=== PATIENT | male | born 1945 | race Caucasian/White ===

== ENCOUNTER → 2017-04-21 | Outpatient (CLI) | payer MEDICARE ==
[~2017-04-21] MED LIST: ASPI81TA50 PO; INSU100V8 SQ; METF10002 PO; METO5TAB5 PO; PIOG30TA3 PO; QUIN20TA17 PO; SIMV40TA3 PO; SODI650T PO; VITAMIN D2 PO
== END | disposition home or self-care (01) ==
LOC: CVU 07:40
PROVIDERS: ATTEND Family Medicine
DX: M79.604 Pain in right leg (principal); M79.605 Pain in left leg; E11.9 Type 2 diabetes mellitus without complications; Z87.891 Personal history of nicotine dependence
CPT/HCPCS: 93922; 93925

== ENCOUNTER → 2017-07-22 | Outpatient (CLI) | payer MEDICARE ==
[~2017-07-22] MED LIST changes: +REGADENOSON 0.4 MG/5 ML SYRINGE ONE
== END ==
LOC: RAD 10:42
PROVIDERS: ATTEND Internal Medicine Cardiovascular Disease
DX: I25.89 Other forms of chronic ischemic heart disease (principal); I21.9 Acute myocardial infarction, unspecified; I08.0 Rheumatic disorders of both mitral and aortic valves; I10 Essential (primary) hypertension; E11.9 Type 2 diabetes mellitus without complications; E78.5 Hyperlipidemia, unspecified
CPT/HCPCS: 78452; 93017; 93306; A9502; J2785

== ENCOUNTER 2017-08-04 11:07 | Day surgery (SDC) | payer MEDICARE ==
[2017-08-03 11:38] VITALS: BP 119/72
[2017-08-03 12:04] LABS: BASOPHILS # (AUTO) 0.02 x10^3/uL (0-0.1); BASOPHILS % (AUTO) 0 % (0-1); EOSINOPHILS % (AUTO) 0 % (1-7); LYMPHOCYTES % (AUTO) 21 % (22-44); MD NO; MEAN CORPUSCULAR HEMOGLOBIN 28.9 pg (27.5-34.5); MEAN CORPUSCULAR HGB CONC 33.2 g/dL (33.2-36.2); MEAN CORPUSCULAR VOLUME 87.2 fL (81-97); MEAN PLATELET VOLUME 8.4 fL (7.4-10.4); MONOCYTES # (AUTO) 0.51 x10^3/uL (0.2-0.8); MONOCYTES % (AUTO) 8 % (2-9); NEUTROPHILS # (AUTO) 4.39 x10^3/uL (1.8-6.8); NEUTROPHILS % (AUTO) 71 % (42-75); PLATELET COUNT 346 x10^3/uL (130-400); RED BLOOD COUNT 5.19 x10^6/uL (4.38-5.82); RED CELL DISTRIBUTION WIDTH 16.8 % (9.4-14.8)
[2017-08-03 12:22] LABS: ANION GAP 7 mmol/L (5-15); CALCIUM 8.8 mg/dL (8.5-10.1); CHLORIDE 112 mmol/L (98-107); CREATININE 2.28 mg/dL (0.7-1.3)
[~2017-08-04] VITALS: Ht 182.9 cm; Wt 104.5 kg
[~2017-08-04 11:07] MED LIST changes: +ALPH200C PO; +BENA5TAB2 PO; +ERGO500017 PO; +FENO160T PO; +INSU100V5 SQ-INSULIN; +METF750T2 PO; +NPH,100V5 SC; -REGADENOSON 0.4 MG/5 ML SYRINGE ONE; +TAMS-11 PO
[2017-08-04] MEDS ORDERED: ASPIRIN 325 MG TABLET EC PO ONE (12:00)
[2017-08-04] MEDS ORDERED: VERAPAMIL 2.5 MG/ML, 2ML ONE (12:18)
[2017-08-04] MEDS ORDERED: HEPARIN 1,000 UNITS/ML, 10ML ONE (12:18)
[2017-08-04] MEDS ORDERED: LIDOCAINE 2%, 20ML ONE (12:18)
[2017-08-04] MEDS ORDERED: TICAGRELOR 90 MG TABLET ONE (12:18)
[2017-08-04] MEDS ORDERED: FENTANYL PF 100 MCG/2ML ONE (12:18)
[2017-08-04] MEDS ORDERED: MIDAZOLAM 1 MG/ML, 5ML ONE (12:18)
[2017-08-04] MEDS ORDERED: ASPIRIN 325 MG TABLET EC ONE (12:26)
[2017-08-04] MEDS ORDERED: SODIUM CHLORIDE 0.9% 1,000 ML IV SCH (13:18)
== END 2017-08-04 15:36 | disposition home or self-care (01) ==
LOC: CACL 11:07
PROVIDERS: ATTEND Internal Medicine Cardiovascular Disease
DX: I25.10 Atherosclerotic heart disease of native coronary artery without angina pectoris (principal); I10 Essential (primary) hypertension; E11.9 Type 2 diabetes mellitus without complications; E78.2 Mixed hyperlipidemia; F17.210 Nicotine dependence, cigarettes, uncomplicated; Z79.82 Long term (current) use of aspirin; Z01.810 Encounter for preprocedural cardiovascular examination
CPT/HCPCS: 36415; 80048; 85025; 93458; 99156; C1769; C1894; J1644; J2250; J3010; J3490; Q9967

== ENCOUNTER 2018-02-15 22:29 | Emergency (ER) | payer MEDICARE ==
[~2018-02-15] VITALS: Ht 182.9 cm; Wt 102.6 kg
[~2018-02-15 22:29] MED LIST changes: -BENA5TAB2 PO; +BENA5TAB3 PO; -PIOG30TA3 PO; +PIOG30TA67 PO
[2018-02-15 22:42] VITALS: BP 122/61
[2018-02-15] MEDS ORDERED: LIDOCAINE-MPF 2%, 2ML ONE (23:14)
[2018-02-15] MEDS ORDERED: LIDOCAINE 1%, 10ML INFIL ONE (23:30)
== END 2018-02-16 00:54 | disposition home or self-care (01) ==
LOC: ED 23:59
DX: S01.81XA Laceration without foreign body of other part of head, initial encounter (principal); S70.01XA Contusion of right hip, initial encounter; M54.2 Cervicalgia; E11.9 Type 2 diabetes mellitus without complications; I10 Essential (primary) hypertension; W01.0XXA Fall on same level from slipping, tripping and stumbling without subsequent striking against object, initial encounter; Y93.89 Activity, other specified; Y92.009 Unspecified place in unspecified non-institutional (private) residence as the place of occurrence of the external cause; Y99.8 Other external cause status
CPT/HCPCS: 12051; 70450; 72125; 73502; 99284; J3490

== ENCOUNTER 2018-06-18 11:30 | Inpatient (IN) | payer MEDICARE ==
[~2018-06-18] VITALS: Ht 182.9 cm; Wt 96.3 kg
--- NOTE | 2018-06-18 11:59 | NUR ---
HAROLDOAR RPT TO CH[facility] CARRERA
[2018-06-18] MEDS ORDERED: SODIUM CHLORIDE FLUSH 10ML SYR IVF ONE (12:00)
[2018-06-18] MEDS ORDERED: SODIUM CHLORIDE 0.9% 1,000ML IVBOLUS ONE ×2 (12:00→12:30)
--- NOTE | 2018-06-18 12:00 | NUR ---
LATE ENTRY FOR 1135. BIB EMS FROM [facility] IN [facility]. +SYNCOPAL EPISODE WHILE LYING ON EXAM TABLE. LASTING APPROX 1MIN PER CLINIC MD. PT PRESENTS NOW VSS, AND NO COMPLAINTS OF CP, SOB, OR BLAKELY. PT FSBS AT CLINIC = 245. DR. COHEN AT BEDSIDE. ASSESSMENT REV AND ORDERS REC'D.
[2018-06-18 12:06] LABS: BASOPHILS # (AUTO) 0.03 x10^3/uL (0-0.1); BASOPHILS % (AUTO) 0 % (0-1); EOSINOPHILS # (AUTO) 0.02 x10^3/uL (0-0.4); EOSINOPHILS % (AUTO) 0 % (1-7); LYMPHOCYTES # (AUTO) 1.37 x10^3/uL (1-3.4); LYMPHOCYTES % (AUTO) 14 % (22-44); MD NO; MEAN CORPUSCULAR HEMOGLOBIN 28.5 pg (27.5-34.5); MEAN CORPUSCULAR HGB CONC 33.1 g/dL (33.2-36.2); MEAN CORPUSCULAR VOLUME 85.8 fL (81-97); MEAN PLATELET VOLUME 9.4 fL (7.4-10.4); MONOCYTES # (AUTO) 0.38 x10^3/uL (0.2-0.8); MONOCYTES % (AUTO) 4 % (2-9); NEUTROPHILS # (AUTO) 8.13 x10^3/uL (1.8-6.8); NEUTROPHILS % (AUTO) 82 % (42-75); PLATELET COUNT 287 x10^3/uL (130-400); RED BLOOD COUNT 5.41 x10^6/uL (4.38-5.82); RED CELL DISTRIBUTION WIDTH 16.4 % (9.4-14.8)
--- NOTE | 2018-06-18 12:13 | NUR ---
SBAR REPORT RECEIVED FROM MAURICIO LARSEN
[2018-06-18 12:19] LABS: ALANINE AMINOTRANSFERASE 25 U/L (12-78); ALBUMIN 3.4 g/dL (3.4-5.0); ANION GAP 8 mmol/L (5-15); CALCIUM 9.2 mg/dL (8.5-10.1); CHLORIDE 105 mmol/L (98-107)
[2018-06-18 12:24] LABS: ALKALINE PHOSPHATASE 91 U/L (45-117); BILIRUBIN,TOTAL 0.5 mg/dL (0.2-1.0); TOTAL PROTEIN 7.1 g/dL (6.4-8.2); TROPONIN I < 0.015 ng/mL (0.000-0.045)
--- NOTE | 2018-06-18 12:30 | NUR ---
PT C/O LEFT SIDE HEARING PROBLEM/LEFT SIDE UPPER ABD PAIN. PT'S FAMILY CONCERNS LEFT SIDE FACIAL DROOP WELL. YOUNG COHEN NOTIFIED.
[2018-06-18 12:36] LABS: CULTURE INDICATED? NO; MICROSCOPIC AUTO
--- NOTE | 2018-06-18 12:39 | NUR ---
PT PROVIDED URINE FOR UA AND UA SENT.
--- NOTE | 2018-06-18 12:39 | NUR ---
PT GIVEN NS BOLUS BY PIV AT THIS TIME. PT TOLERATED WELL AND RUNNING WELL.
[2018-06-18] MEDS ORDERED: NPH,100V SQ-INSULIN (13:10)
[2018-06-18] MEDS ORDERED: SODIUM CHLORIDE 0.9% 1,000 ML IV SCH (13:30)
--- NOTE | 2018-06-18 13:39 | NUR ---
1ST NS BOLUS FINISHED. LUNG SOUNDS CLEAR. PT AOX4. RESPS EVEN AND UNLABORED. 2ND NS BOLUS STARTING AT THIS TIME. PT TOLERATED WELL.
--- NOTE | 2018-06-18 14:51 | NUR ---
PT RESTING IN GURNEY. 2ND NS BOLUS RUNNING STILL. LUNG SOUNDS CLEAR. PT AOX4. RESPS EVEN AND UNLABORED.
--- NOTE | 2018-06-18 14:56 | NUR ---
PRECEPTOR NOTE: HOSPITALIST DOLLY HAMMONDS AT BEDSIDE TO ADMIT PT.
[2018-06-18] MEDS ORDERED: NICOTINE 14MG/24 HR PATCH.TD24 TD SCH (15:30)
[2018-06-18] MEDS ORDERED: ACETAMINOPHEN 325 MG TABLET PO PRN (15:30)
[2018-06-18] MEDS ORDERED: ONDANSETRON 2MG/ML, 2ML IVPush PRN (15:30)
[2018-06-18] MEDS ORDERED: TEMAZEPAM 15 MG CAPSULE PO PRN (15:30)
[2018-06-18] MEDS ORDERED: hydrALAzine 20 MG/ML, 1ML IVPush PRN (15:30)
--- NOTE | 2018-06-18 15:32 | NUR ---
ADMIT ORDER CHANGED TO CARDIAC TELE PER MD ALBERTO. THROUGHPUT RN NOTIFIED.
[2018-06-18 15:50] LABS: BASOPHILS % (AUTO) 0 % (0-1); EOSINOPHILS % (AUTO) 0 % (1-7); LYMPHOCYTES # (AUTO) 1.76 x10^3/uL (1-3.4); LYMPHOCYTES % (AUTO) 18 % (22-44); MD NO; MEAN CORPUSCULAR HEMOGLOBIN 28.9 pg (27.5-34.5); MEAN CORPUSCULAR VOLUME 85.2 fL (81-97); MEAN PLATELET VOLUME 9.1 fL (7.4-10.4); MONOCYTES # (AUTO) 0.26 x10^3/uL (0.2-0.8); MONOCYTES % (AUTO) 3 % (2-9); NEUTROPHILS # (AUTO) 7.98 x10^3/uL (1.8-6.8); NEUTROPHILS % (AUTO) 80 % (42-75); PLATELET COUNT 272 x10^3/uL (130-400); RED BLOOD COUNT 5.08 x10^6/uL (4.38-5.82); RED CELL DISTRIBUTION WIDTH 15.9 % (9.4-14.8)
[2018-06-18] MEDS: INSULIN LISPRO 100 UNITS/ML, PEN SQ-INSULIN SCH ×2 (16:00→21:57)
[2018-06-18] MEDS ORDERED: ERGOCALCIFEROL 50,000 UNIT CAPSULE PO SCH (16:00)
--- NOTE | 2018-06-18 16:00 | NUR ---
PT TO MRI
[2018-06-18] MEDS ORDERED: LORazepam 2 MG/ML, 1ML ONE (16:15)
[2018-06-18] MEDS ORDERED: LORazepam 2 MG/ML, 1ML IVPush PRN (16:30)
--- NOTE | 2018-06-18 16:36 | NUR ---
RN CALLED BY PET CARE ATTENDANT WHO REPORTS PT IS NOT TOLERATING MRI D/T CLAUSTROPHOBIA. ORDER RECEIVED FOR ATIVAN IV PUSH. PT MEDICATED PER EMAR, TOLERATED WELL. PT MONITORED DURING MRI, TOLERATED WELL WITH 1 MG ATIVAN ADMINISTERED. PT TO BE TRANSPORTED DIRECTLY TO [facility] FROM [facility]. RECEIVING RN JOVANNA UPDATED. BELONGINGS WITH PT TO [facility].
[2018-06-18] MEDS: LACTATED RINGERS 1,000 ML IV SCH (17:19)
[2018-06-18 17:20] VITALS: BP 103/61
--- NOTE | 2018-06-18 17:30 | NUR ---
PT'S WALLET, GLASSES, PHONE AND BOOK REVIEWER FOUND IN ED ROOM 3. THESE ITEMS WERE BAGGED AND WALKED UP BY THIS RN TO CARDIAC TELE DEPT WHERE PATIENT WAS ADMITTED.
[2018-06-18] MEDS ORDERED: NPH,100V SC (18:34)
[2018-06-18] MEDS ORDERED: PIOG15TA66 PO (18:35)
[2018-06-18 19:35] VITALS: BP 108/67
[2018-06-19] VITALS (8 sets, daily range): BP systolic 90–116; BP diastolic 58–68
[2018-06-19] MEDS: LACTATED RINGERS 1,000 ML IV SCH ×2 (00:35→08:30)
[2018-06-19 05:40] LABS: ALBUMIN 3.1 g/dL (3.4-5.0); ANION GAP 10 mmol/L (5-15); CALCIUM 8.6 mg/dL (8.5-10.1); CHLORIDE 112 mmol/L (98-107)
[2018-06-19 05:47] LABS: ALANINE AMINOTRANSFERASE 23 U/L (12-78); ALKALINE PHOSPHATASE 72 U/L (45-117); BILIRUBIN,TOTAL 0.6 mg/dL (0.2-1.0); CHOL/HDL RATIO 4.2; CHOLESTEROL, TOTAL 133 mg/dL (140-239); CREATININE 1.45 mg/dL (0.7-1.3); HDL CHOL % 24 % (26-37); HDL CHOLESTEROL (DIRECT) 32 mg/dL (40-60); LDL CHOLESTEROL,CALCULATED 55 mg/dL (54-169); LDL/HDL RATIO 1.7 (0.5-3.0); TOTAL PROTEIN 6.2 g/dL (6.4-8.2); TRIGLYCERIDES 228 mg/dL (50-200); VLDL CHOLESTEROL 46 mg/dL (0-25)
[2018-06-19] MEDS: INSULIN LISPRO 100 UNITS/ML, PEN SQ-INSULIN SCH ×2 (07:32→11:35)
[2018-06-19] MEDS ORDERED: TAMSULOSIN 0.4 MG CAP.ER.24H PO SCH (09:00)
[2018-06-19] MEDS ORDERED: INSULIN NPH HUMAN 100 UNIT/ML, 3ML VIAL SQ-INSULIN SCH (09:00)
[2018-06-19] MEDS ORDERED: SIMVASTATIN 40 MG TABLET PO SCH (09:00)
[2018-06-19] MEDS ORDERED: BENAZEPRIL 5 MG TABLET PO SCH (09:00)
[2018-06-19] MEDS ORDERED: ALPHA LIPOIC ACID PO SCH (09:00)
[2018-06-19] MEDS ORDERED: FENOFIBRATE 54 MG TABLET PO SCH (09:00)
[2018-06-19] MEDS ORDERED: ASPIRIN 81 MG TABLET EC PO SCH (09:00)
[2018-06-19] MEDS ORDERED: BENAZEPRIL 10 MG TABLET ONE (09:31)
[2018-06-19] MEDS ORDERED: NICO-486 TD (12:16)
== END 2018-06-19 13:33 | disposition home or self-care (01) | DRG 73 ==
LOC: ED 12:41 → EDIP 12:58 → 5SO 17:02
PROVIDERS: ADMIT Internal Medicine; ATTEND Internal Medicine
DX: G90.9 Disorder of the autonomic nervous system, unspecified (principal); E11.00 Type 2 diabetes mellitus with hyperosmolarity without nonketotic hyperglycemic-hyperosmolar coma (NKHHC); E87.2 Acidosis; E11.22 Type 2 diabetes mellitus with diabetic chronic kidney disease; E55.9 Vitamin D deficiency, unspecified; E78.00 Pure hypercholesterolemia, unspecified; I95.1 Orthostatic hypotension; E78.5 Hyperlipidemia, unspecified; F17.210 Nicotine dependence, cigarettes, uncomplicated; H91.90 Unspecified hearing loss, unspecified ear; I25.10 Atherosclerotic heart disease of native coronary artery without angina pectoris; N18.3 Chronic kidney disease, stage 3 (moderate); N40.0 Benign prostatic hyperplasia without lower urinary tract symptoms; Z79.4 Long term (current) use of insulin; Z90.49 Acquired absence of other specified parts of digestive tract; Z96.643 Presence of artificial hip joint, bilateral
CPT/HCPCS: 36415; 70553; 71045; 80053; 80061; 81001; 82962; 83036; 83605; 83735; 84100; 84443; 84484; 85025; 90656; 93005; 93880; 96361; 96374; 99285; G0378; J1815; J2060; J7030; J7120

== ENCOUNTER 2018-09-20 16:14 | Outpatient (CLI) | payer MEDICARE ==
[~2018-09-20 16:14] MED LIST changes: +NICO-486 TD; +NPH,100V SC; +NPH,100V SQ-INSULIN; +PIOG15TA66 PO
== END 2018-09-20 23:59 | disposition home or self-care (01) ==
LOC: RAD 16:14
PROVIDERS: ATTEND Family Medicine
DX: M17.12 Unilateral primary osteoarthritis, left knee (principal); M25.462 Effusion, left knee

== ENCOUNTER 2018-11-15 14:32 | Emergency (ER) | payer MEDICARE ==
[~2018-11-15] VITALS: Ht 182.9 cm; Wt 101.2 kg
[2018-11-15 14:34] VITALS: BP 159/81
--- NOTE | 2018-11-15 14:50 | NUR ---
FIRST CONTACT WITH PT. PT C/O LEFT HAND SWELLING/PAIN SINCE LAST FRI, DENIES INJURY. PT'S AOX4. RESPS EVEN AND UNLABORED.
--- NOTE | 2018-11-15 15:02 | NUR ---
REPORT GIVEN TO OLIVIA LARSEN.
--- NOTE | 2018-11-15 15:14 | NUR ---
RN IN TO KATHRYN PT, PT DOES HAVE RED SWOLLEN L WRIST, WARM TO THE TOUCH, PT STATES "I THINK ITS ARTHRITIS" PT STATES PAIN IS 3/10. PT STATES HE TOOK A PAIN PILL THIS AM THAT HE HAD LEFT OVER FROM HIS KNEE INJURY HE HAD RECENTLY. AWAITING ER PROVIDER KATHRYN
[2018-11-15] MEDS ORDERED: COLCHICINE 0.6 MG TABLET PO STA (15:32)
[2018-11-15] MEDS ORDERED: COLCHICINE 0.6 MG CAPSULE PO STA (15:40)
[2018-11-15 15:47] LABS: BASOPHILS # (AUTO) 0.04 x10^3/uL (0-0.1); BASOPHILS % (AUTO) 1 % (0-1); EOSINOPHILS # (AUTO) 0.05 x10^3/uL (0-0.4); EOSINOPHILS % (AUTO) 1 % (1-7); LYMPHOCYTES # (AUTO) 1.03 x10^3/uL (1-3.4); LYMPHOCYTES % (AUTO) 15 % (22-44); MD NO; MEAN CORPUSCULAR HEMOGLOBIN 29.1 pg (27.5-34.5); MEAN CORPUSCULAR HGB CONC 33.3 g/dL (33.2-36.2); MEAN CORPUSCULAR VOLUME 87.5 fL (81-97); MEAN PLATELET VOLUME 8.6 fL (7.4-10.4); MONOCYTES # (AUTO) 0.62 x10^3/uL (0.2-0.8); MONOCYTES % (AUTO) 9 % (2-9); NEUTROPHILS # (AUTO) 5.04 x10^3/uL (1.8-6.8); NEUTROPHILS % (AUTO) 74 % (42-75); PLATELET COUNT 241 x10^3/uL (130-400); RED BLOOD COUNT 4.94 x10^6/uL (4.38-5.82); RED CELL DISTRIBUTION WIDTH 17.5 % (9.4-14.8)
[2018-11-15] MEDS ORDERED: ACETAMINOPHEN 500 MG TABLET ONE (15:49)
[2018-11-15] MEDS ORDERED: COLCHICINE 0.6 MG CAPSULE ONE (15:49)
[2018-11-15 15:58] LABS: ALBUMIN 3.6 g/dL (3.4-5.0); ANION GAP 7 mmol/L (5-15); CALCIUM 8.9 mg/dL (8.5-10.1); CHLORIDE 108 mmol/L (98-107); CREATININE 1.44 mg/dL (0.7-1.3)
[2018-11-15 15:59] LABS: HCT (SEDRATE) 43.3 % (39.2-51.8)
[2018-11-15] MEDS ORDERED: ACETAMINOPHEN 500 MG TABLET PO ONE (16:00)
--- NOTE | 2018-11-15 17:16 | NUR ---
Patient given discharge instructions and they have confirmed that they understand the instructions. Patient ambulatory with steady gait.
== END 2018-11-15 17:26 | disposition home or self-care (01) ==
LOC: ED 17:22
DX: L03.114 Cellulitis of left upper limb (principal); M13.142 Monoarthritis, not elsewhere classified, left hand; I10 Essential (primary) hypertension; E11.9 Type 2 diabetes mellitus without complications; E78.00 Pure hypercholesterolemia, unspecified; F17.210 Nicotine dependence, cigarettes, uncomplicated
CPT/HCPCS: 36415; 80048; 82040; 84550; 85025; 85651; 99284

== ENCOUNTER 2018-11-20 07:49 | Emergency (ER) | payer MEDICARE ==
[~2018-11-20] VITALS: Ht 182.9 cm; Wt 100.8 kg
[2018-11-20 08:36] LABS: BASOPHILS # (AUTO) 0.04 x10^3/uL (0-0.1); BASOPHILS % (AUTO) 0 % (0-1); EOSINOPHILS # (AUTO) 0.02 x10^3/uL (0-0.4); EOSINOPHILS % (AUTO) 0 % (1-7); LYMPHOCYTES # (AUTO) 1.46 x10^3/uL (1-3.4); LYMPHOCYTES % (AUTO) 13 % (22-44); MD NO; MEAN CORPUSCULAR HEMOGLOBIN 28.6 pg (27.5-34.5); MEAN CORPUSCULAR HGB CONC 33.3 g/dL (33.2-36.2); MEAN CORPUSCULAR VOLUME 85.9 fL (81-97); MEAN PLATELET VOLUME 8.1 fL (7.4-10.4); MONOCYTES # (AUTO) 0.76 x10^3/uL (0.2-0.8); MONOCYTES % (AUTO) 7 % (2-9); NEUTROPHILS # (AUTO) 9.43 x10^3/uL (1.8-6.8); NEUTROPHILS % (AUTO) 81 % (42-75); PLATELET COUNT 312 x10^3/uL (130-400); RED BLOOD COUNT 5.03 x10^6/uL (4.38-5.82); RED CELL DISTRIBUTION WIDTH 16.9 % (9.4-14.8)
--- NOTE | 2018-11-20 08:49 | NUR ---
MINESWEEPING OFFICER: PT TO ROOM FROM [facility] RAI
--- NOTE | 2018-11-20 09:09 | NUR ---
PATIENT PRESENTS TO ED TODAY FOR LT HAND PAIN/ERYTHEMA/SWELLING, WORSE YEST, PATIENT BEING DIAGNOSED WITH CELLULITIS AND REPORTS TAKING KEFLEX PAST 5 DAYS, ALLY [place] STUDENT AT BEDSIDE, AWAITING ORDERS, CALL LIGHT WITHIN REACH. SPOUSE AT BEDSIDE.
[2018-11-20] MEDS ORDERED: CHOL100015 PO (09:16)
[2018-11-20] MEDS ORDERED: LIDOCAINE-MPF 1%, 5ML ONE (09:21)
[2018-11-20] MEDS ORDERED: LIDOCAINE 1%, 10ML INFIL ONE (09:30)
--- NOTE | 2018-11-20 09:59 | NUR ---
BEDSIDE REPORT TO CHAVA BARTHOLOMEW AND CHAVA HARGROVE. PATIENT SITTING IN [place] AWAITING [place] PAPERWORK, FELIX.
--- NOTE | 2018-11-20 10:00 | NUR ---
TRAE FROM [facility] HINTON. PT CARE ASSUMED. AWAITING DC INSTRUCTIONS.
[2018-11-20 10:25] VITALS: BP 135/74
== END 2018-11-20 10:28 | disposition home or self-care (01) ==
LOC: ED 09:38
DX: M19.032 Primary osteoarthritis, left wrist (principal); I10 Essential (primary) hypertension; E11.9 Type 2 diabetes mellitus without complications; E78.00 Pure hypercholesterolemia, unspecified; Z90.89 Acquired absence of other organs; F17.200 Nicotine dependence, unspecified, uncomplicated
CPT/HCPCS: 20605; 36415; 82962; 85025; 99284

== ENCOUNTER → 2019-09-09 | Outpatient (CLI) | payer MEDICARE ==
[~2019-09-09] MED LIST changes: +CHOL100015 PO; -METF750T2 PO; +METF750T42 PO; +SIMV40TA20 PO; -SIMV40TA3 PO
== END | disposition home or self-care (01) ==
LOC: RAD 14:48
PROVIDERS: ATTEND Family Medicine
DX: M25.462 Effusion, left knee (principal); I70.202 Unspecified atherosclerosis of native arteries of extremities, left leg; M17.12 Unilateral primary osteoarthritis, left knee

== ENCOUNTER → 2020-04-18 | Outpatient (CLI) | payer MEDICARE ==
[~2020-04-18] MED LIST changes: +ASPI81TA45 PO; +INSU500V SC; +TRAM50TA2 PO
[2020-04-18 14:15] LABS: BASOPHILS % (AUTO) 1 % (0-1); EOSINOPHILS % (AUTO) 0 % (1-7); LYMPHOCYTES % (AUTO) 15 % (22-44); MEAN CORPUSCULAR HEMOGLOBIN 29.5 pg (27.5-34.5); MEAN CORPUSCULAR HGB CONC 33.8 g/dL (33.2-36.2); MONOCYTES % (AUTO) 7 % (2-9); NEUTROPHILS % (AUTO) 76 % (42-75); PLATELET COUNT 289 x10^3/uL (130-400); RED BLOOD COUNT 4.91 x10^6/uL (4.38-5.82); RED CELL DISTRIBUTION WIDTH 17.5 % (9.4-14.8)
[2020-04-18 14:27] LABS: ANION GAP 6 mmol/L (5-15); CALCIUM 9.1 mg/dL (8.5-10.1); CHLORIDE 108 mmol/L (98-107); INTERNATIONAL NORMALIZED RATIO 1.06 (0.93-1.1); PROTHROMBIN TIME 11.2 Seconds (9.6-11.5)
[2020-04-18 14:29] LABS: MD NO
[2020-04-18 14:30] LABS: ALANINE AMINOTRANSFERASE 16 U/L (12-78); ALKALINE PHOSPHATASE 98 U/L (45-117); BILIRUBIN,TOTAL 0.6 mg/dL (0.2-1.0); CREATININE 1.72 mg/dL (0.7-1.3); TOTAL PROTEIN 7.5 g/dL (6.4-8.2)
[2020-04-18 14:48] LABS: MICROSCOPIC INDICATED
== END | disposition home or self-care (01) ==
LOC: STAR 12:45
PROVIDERS: ATTEND Neurological Surgery
DX: Z01.818 Encounter for other preprocedural examination (principal); M48.061 Spinal stenosis, lumbar region without neurogenic claudication; R94.31 Abnormal electrocardiogram [ECG] [EKG]
CPT/HCPCS: 36415; 71046; 80053; 81001; 83036; 85025; 85610; 85730; 87077; 87086; 87186; 93005

== ENCOUNTER → 2020-04-18 | Outpatient (CLI) | payer MEDICARE ==
[2020-04-18 15:20] LABS: MEAN CORPUSCULAR HEMOGLOBIN 29.7 pg (27.5-34.5); MEAN PLATELET VOLUME 8.6 fL (7.4-10.4); PLATELET COUNT 302 x10^3/uL (130-400); RED BLOOD COUNT 4.89 x10^6/uL (4.38-5.82); RED CELL DISTRIBUTION WIDTH 17.1 % (9.4-14.8)
[2020-04-18 15:28] LABS: CALCIUM 9.6 mg/dL (8.5-10.1)
[2020-04-18 15:33] LABS: ALBUMIN 4.1 g/dL (3.4-5.0); ANION GAP 5 mmol/L (5-15); CALCIUM 9.1 mg/dL (8.5-10.1); CHLORIDE 109 mmol/L (98-107); CREATININE 1.66 mg/dL (0.7-1.3)
[2020-04-18 15:42] LABS: MD YES
[2020-04-18 16:43] LABS: EOS#(MANUAL) 0.09 x10^3/uL (0.0-0.4); EOS% (MANUAL) 1 % (1-7); LYMPH#(MANUAL) 1.46 x10^3/uL (1-3.4); LYMPHS% (MANUAL) 17 % (22-44); MONOS#(MANUAL) 0.17 x10^3/uL (0.3-2.7); MONOS% (MANUAL) 2 % (2-9); SEG#(MANUAL) 6.88 x10^3/uL (1.8-6.8); SEGS% (MANUAL) 80 % (42-75)
[2020-04-18 16:44] LABS: ANISOCYTOSIS 1+
[2020-04-18 16:45] LABS: <PLATELET ESTIMATE> ADEQUATE; <PLT MORPHOLOGY> NORMAL PLT MORPH
== END | disposition home or self-care (01) ==
LOC: LAB 14:22
PROVIDERS: ATTEND Internal Medicine Nephrology
DX: N18.30 Chronic kidney disease, stage 3 unspecified (principal)
CPT/HCPCS: 36415; 80069; 82310; 82570; 83970; 84156; 85025

== ENCOUNTER → 2020-04-24 | Outpatient (CLI) | payer MEDICARE | END | disposition home or self-care (01) | LOC: CVU 06:33 | PROVIDERS: ATTEND Internal Medicine Cardiovascular Disease | DX: Z01.810 Encounter for preprocedural cardiovascular examination (principal); I10 Essential (primary) hypertension; I08.0 Rheumatic disorders of both mitral and aortic valves; E11.9 Type 2 diabetes mellitus without complications; E78.5 Hyperlipidemia, unspecified | CPT/HCPCS: 93306; 93356 ==